=== PATIENT | male | born 1965 | race Native Hawaiian/Other Pacific Islander ===

== ENCOUNTER 2016-06-25 06:19 | Emergency (ER) | payer MEDICAID ==
[~2016-06-25] VITALS: Ht 188 cm; Wt 145.1 kg
--- NOTE | 2016-06-25 06:30 | NUR ---
RECEIVED 51 YO MALE, BIB BLS [facility]. PER MEDIC, PT CALLED 911 FOR ABD PAIN. PT C/O "SHARP" LOWER ABD PAIN X 3 HOURS, ACTIVE BOWEL SOUNDS AUSC IN ALL 4 QUADS, ABD TENDER UPON PALPATION. PT IS AAOX4, GUARDING ABD IN PAIN, NO SOB, RR EVEN AND UNLABORED, MSE DONE BY DR. HAYNES. PT PLACED IN GOWN, ON MONITOR AND PULSE-OX, PT GIVEN CALL LIGHT EDUCATION, CALL LIGHT PLACED W/IN REACH
[2016-06-25 06:55] LABS: BASOPHIL % 0.4 % (0-2); PLATELET COUNT 157 x10^3mcL (130-400); RED CELL DISTRIBUTION WIDTH 13.4 % (11.5-14.5)
[2016-06-25 07:06] LABS: CALCIUM 8.6 mg/dL (8.5-10.1); CARBON DIOXIDE 23.7 mmol/L (21-32); CHLORIDE SERUM 105 mmol/L (98-107); CREATININE SERUM 1.1 mg/dL (0.7-1.3); GFR1 > 60 mL/min; GLUCOSE SERUM 126 mg/dL (74-106); POTASSIUM SERUM 4.1 mmol/L (3.5-5.1); SODIUM SERUM 139 mmol/L (136-145)
[2016-06-25 07:14] LABS: ALKALINE PHOSPHATASE 103 U/L (46-116); ALT/SGPT 52 U/L (16-63); AMYLASE 59 U/L (25-115); AST/SGOT 31 U/L (15-37); BILIRUBIN TOTAL 0.94 mg/dL (0.20-1.00); LIPASE 154 IU/L (73-393); TOTAL PROTEIN, SERUM 8.2 g/dL (6.4-8.2)
[2016-06-25] MEDS ORDERED: PROAIR RES117 MCG/Ac IH (07:39)
[2016-06-25] MEDS ORDERED: PROMETHAZINE25 M3 PO (07:40)
--- NOTE | 2016-06-25 07:40 | NUR ---
DR. HAYNES WAS AT BEDSIDE SPEAKING TO THE PT ABOUT PLAN OF CARE. PT STATES "AT [facility] THEY GIVE ME DILAUDID."
[2016-06-25] MEDS ORDERED: MORPHINE SULFAT15 MG PO (07:41)
[2016-06-25] MEDS ORDERED: FLO4 PO (07:42)
[2016-06-25] MEDS ORDERED: NEXIUM40 MG PO (07:42)
[2016-06-25] MEDS ORDERED: BENAZEPRIL HYDR40 M1 PO (07:43)
--- NOTE | 2016-06-25 07:58 | NUR ---
REPORT CALLED TO RONA BORREGO TO ASSUME CARE FOR THIS PT POST TRANSFER FROM ED TO TELE UNIT.
[2016-06-25 08:05] VITALS: BP 148/93
--- NOTE | 2016-06-25 08:15 | NUR ---
WHEN I WENT INTO THE PTS ROOM TO MEDICATE HIM WITH THE NORCO TAB THAT DR. HAYNES ORDERED. THE PT STATED TO ME THAT HE DOESN'T WANT NORCO AND HE WANTS DILAUDID INSTEAD AND THEN REQUESTS TO LEAVE AMA. DR. HAYNES EXPLAINED ALL OF THE RISKS OF LEAVING THE HOSPITAL AMA AND ALL OF THE BENIFITS OF STAYING IN THE HOSPITAL. PT IS A/O X 4. PT VERBALIZED UNDERSTANDING OF ALL OF THE RISKS AND BENIFITS OF THE AMA.
[2016-06-25 08:43] LABS: CHOLESTEROL/HDL RATIO 3.5
[2016-06-25 08:47] LABS: T3 TOTAL 1.55 ng/mL
[2016-06-25 08:51] LABS: FREE T4 1.25 ng/dL (0.76-1.46); FREE THYROXINE INDEX 3.2 ug/dL (1.4-4.5); T4(THYROXINE) 9.8 ug/dL (4.7-13.3)
== END 2016-06-25 08:05 | disposition left against medical advice (07) ==
LOC: ED 06:19 → DU 07:29 → ED 07:29
PROVIDERS: Emergency Medicine; Family Medicine
DX: N13.2 Hydronephrosis with renal and ureteral calculous obstruction (principal); I10 Essential (primary) hypertension; E11.9 Type 2 diabetes mellitus without complications; J45.909 Unspecified asthma, uncomplicated; K42.9 Umbilical hernia without obstruction or gangrene; E66.01 Morbid (severe) obesity due to excess calories; Z87.891 Personal history of nicotine dependence
CPT/HCPCS: 83880; 84439; J7030